=== PATIENT | male | born 1945 | race Caucasian/White ===

== ENCOUNTER → 2021-01-08 09:09 | Outpatient (REF) | payer MEDICARE, SELFPAY ==
--- NOTE | ~2021-01-08 | US_ITS ---
EXAMINATION: US EXTRACRANIAL CAROTID DUPLEX, BILATERAL CLINICAL INFORMATION: This is a 75-year-old male with cerebral infarct. Tobacco use. Hypertension. COMPARISON: None TECHNIQUE: Real-time ultrasound and Doppler techniques (integrating B-mode 2-D vascular images, Doppler spectral analysis and color-flow Doppler imaging) were utilized to interrogate the extracranial carotid arteries, the vertebral arteries and proximal subclavian arteries bilaterally. The degree of stenosis is determined by criteria similar to NASCET. FINDINGS: Right Side: 1. There is minimal atherosclerotic plaque seen in the bifurcation/proximal ICA region. 2. The common carotid artery PSV proximally is 94 cm/s and distally 104 cm/s. 3. The proximal internal carotid artery velocities are 74 cm/s systolic and 15 cm/s diastolic. 4. The proximal external carotid artery PSV is 96 cm/s. 5. The vertebral artery shows antegrade flow. 6. The subclavian artery waveforms are normal. Left Side: 1. There is a mild atherosclerotic plaque seen in the bifurcation/proximal ICA region. 2. The common carotid artery PSV proximally is 77 cm/s and distally 80 cm/s. 3. The proximal internal carotid artery velocities are 83 cm/s systolic and 12 cm/s diastolic. 4. The proximal external carotid artery PSV is 115 cm/s. 5. The vertebral artery shows antegrade flow. 6. The subclavian artery waveforms are normal. US/US carotid duplex BI IMPRESSION: 1. RIGHT: Minimal, non-hemodynamically significant stenosis of the proximal right internal carotid artery corresponding to a 0-49% stenosis by velocity criteria. 2. LEFT: Minimal, non-hemodynamically significant stenosis of the proximal left internal carotid artery corresponding to a 0-49% stenosis by velocity criteria.
--- NOTE | 2021-01-08 09:15 | CA_ITS ---
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 The visually estimated ejection fraction is between 55-60%. - The basal inferior and basal inferolateral segments are hypokinetic. - There is mild aortic valve regurgitation. - There is mild mitral valve regurgitation. - There is mild tricuspid valve regurgitation. - There is mild dilatation of the ascending aorta measuring 4.00 cm. - No evidence of PFO by color doppler. If clinically indicated, consider bubble study. Findings Left Ventricle Normal left ventricular cavity size. There is mildly increased left ventricular wall thickness. The left ventricular systolic function is normal. The visually estimated ejection fraction is between 55-60%. The calculated ejection fraction is 56% by biplane method. There is no evidence of regional wall motion abnormalities. E/E prime ratio is <8, consistent with normal filling pressures. Evidence suggests grade I (mild) diastolic dysfunction. Wall Motion Rest Echo Findings The basal inferior and basal inferolateral segments are hypokinetic. Right Ventricle Normal right ventricular cavity size and systolic function. Atria The left atrium is normal in size. The right atrium is normal in size. No evidence of PFO by color doppler. Aortic Valve There is mild calcification of the aortic valve. There is no aortic valve stenosis. There is mild aortic valve regurgitation. Mitral Valve There is mild anterior and posterior mitral leaflet thickening. There is mild mitral valve regurgitation. There is no mitral valve stenosis. Pulmonic Valve The pulmonic valve was not well visualized. Tricuspid Valve Normal tricuspid valve structure. There is mild tricuspid valve regurgitation. The pulmonary artery systolic pressure is normal. Great Vessels There is mild dilatation of the ascending aorta measuring 4.00 cm. Venous The inferior vena cava is normal in size and collapses greater than 50% with inspiration. Pericardium/Pleural There is no evidence of pericardial effusion. Prior Study Comparison No prior study available for comparison. Measurements 2D Linear Measurements IVSd: 1.06 0.6-0.9/0.6-1.0 cm LVIDd: 4.16 3.9-5.3/4.2-5.9 cm LVIDd Index: 2.35 2.4-3.2/2.2-3.1 cm/m2 LVIDs: 2.64 2.0-3.6 cm LVPWd: 1.04 0.7-1.1 cm Ao Root: 4.00 2.1-3.5 cm LA Diam: 3.10 2.7-3.8/3.0-4.0 cm LAIDs Index: 1.75 1.5-2.3 cm/m2 LV Mass: 180.26 67-162/88-224 g LV Mass Index: 101.84 43-95/49-115 g/m2 LVOT Diam: 2.30 3.0+(-)1.3 cm 2D Systolic Function EF 4C: 58.50 >55% EF 2C: 51.70 >55% EF BiP: 56.40 >55% Mitral Valve MV Pk E: 0.44 MV PK A: 0.81 MV Decel Time: 205.00 E/A: 0.50 E'Lateral: 6.42 E'Medial: 6.64 E/E' Med: 6.60 E/E' Lat: 6.80 PHT: 60.00 MVA PHT: 3.67 Decel [place]: 2.12 Aortic Valve AoV Pk Supa: 1.45 AoV Mn Supa: 0.99 AoV VTI: 0.30 AoV Pk Grad: 8.00 Aov Mn Grad: 4.00 ALISTAIR Cont.VTI: 3.01 AI Pk Supa: 4.74 AI [place]: 3.15 LVOT LVOT Pk Supa: 0.87 LVOT Mn Supa: 0.62 LVOT VTI: 0.22 LVOT Pk Grad: 3.00 LVOT Mn Grad: 2.00 LVOT Diam: 2.30 LVOT Area: 4.15 Diastolic Function MV Pk E: 0.44 MV Pk A: 0.81 E/A: 0.50 E'Medial: 6.64 E/E' Med: 6.60 E' Laterial: 6.42 E/E' Lat: 6.80 Tricuspid Valve TR Pk Supa: 2.63 TR Pk Grad: 28.00 RA Press: 3.00 RVSP: 31.00 Great Vessels Aorta Ao Root-2D: 4.00 2.0-3.7 cm Ao Asc: 4.00 2.1-3.4 cm Ao Arch: 3.00 Updated in Other Vendor System with Status of Final Blaise Durham MD electronically signed on 01/08/2021 12:54:06 PM with status of Final
== END ==
LOC: HO.CARD 09:09
PROVIDERS: PCP Internal Medicine; Visit Provider Psychiatry & Neurology Neurology
DX: Z86.73 Personal history of transient ischemic attack (TIA), and cerebral infarction without residual deficits (principal); I10 Essential (primary) hypertension; Z72.0 Tobacco use
CPT/HCPCS: 93306; 93880

== ENCOUNTER 2022-12-26 14:00 | Outpatient (RCR) | payer MEDICARE, SELFPAY | END 2023-04-17 14:48 | disposition home or self-care (01) | LOC: HO.PTWFD 14:00 | PROVIDERS: PCP Physician Assistant Medical; Visit Provider Physician Assistant Medical | DX: M54.2 Cervicalgia (principal) | CPT/HCPCS: 97110; 97140; 97162 ==